=== PATIENT | female | born 1945 | race Caucasian/White ===

== ENCOUNTER 2023-09-27 10:29 | Outpatient (CLI) | payer MEDICARE | END 2023-09-27 10:30 | disposition home or self-care (01) | LOC: BICMAMMO 10:29 | PROVIDERS: ATTEND Family Medicine | DX: Z13.820 Encounter for screening for osteoporosis (principal); Z78.0 Asymptomatic menopausal state; M81.0 Age-related osteoporosis without current pathological fracture; M85.89 Other specified disorders of bone density and structure, multiple sites | CPT/HCPCS: 77080 ==

== ENCOUNTER 2023-09-28 09:15 | Emergency (ER) | payer MEDICARE ==
[2023-09-28] MEDS ORDERED: Nitroglycerin 0.4 MG TAB (25 Tab Bottle) ONE (09:44)
[2023-09-28] MEDS ORDERED: Aspirin Chewable 81 MG TAB ONE (09:44)
[2023-09-28] MEDS ORDERED: fentaNYL 50 mcg/mL 1 mL Vial ONE (10:07)
[2023-09-28 10:12] LABS: Hematocrit 45.6 % (36.0-47.0); Hemoglobin 15.4 g/dL (12.0-16.0); Manual Diff?? YES; Mean Corpuscular HGB CONC 33.8 g/dL (32.0-36.0); Mean Corpuscular Hemoglobin 31.4 pg (27.0-31.0); Mean Corpuscular Volume 93.1 fl (78.0-98.0); Mean Platelet Volume 10.1 fL (7.4-10.4); Platelet Count 144 10x3/uL (130-400); RBC Distribution Width 12.3 % (11.5-14.5); White Blood Cell (WBC) Count 11.5 10x3/uL (4.8-10.8)
[2023-09-28 10:13] LABS: Delete Auto Diff?? YES
[2023-09-28 10:33] LABS: Troponin I Less than 0.010 ng/mL (< 0.028)
[2023-09-28 10:34] LABS: ALT (SGPT) 25 U/L (8-55); AST (SGOT) 28 U/L (5-34); Albumin 4.4 g/dL (3.4-4.8); Alkaline Phosphatase 41 U/L (40-110); Anion Gap 9 mmol/L (10-20); BUN (Urea Nitrogen) 14 mg/dL (9.8-20.1); Bilirubin, Total 0.7 mg/dL (0.2-1.2); Calc. Creatinine Clearance 0 mL/min (70-130); Calcium 9.7 mg/dL (7.8-10.44); Carbon Dioxide 28 mmol/L (23-31); Chloride 107 mmol/L (98-107); Estimated GFR 69; Globulin 2.4 g/dL (2.4-3.5); Glucose 117 mg/dL (83-110); Lipase 41 U/L (8-78); Protein, Total 6.8 g/dL (5.8-8.1); Sodium 140 mmol/L (136-145)
[2023-09-28 11:14] LABS: Band 1 % (5-11); CellaVision Operator ID LAB.KW3; Eosinophils 2 % (0-10); Lymphocytes 47 % (21-51); Monocytes 7 % (0-10); Neutrophil 40 % (42-75); Platelet Adequacy Comment Platelets Normal; RBC Morphology Within Normal Limits; Reactive Lymphocytes 2 % (0-10); Total Cell Count 102
[2023-09-28] MEDS ORDERED: Lidocaine 4% Patch TD SCH (11:45)
[2023-09-28 14:42] LABS: Troponin I Less than 0.010 ng/mL (< 0.028)
[2023-09-28] MEDS ORDERED: Transdermal Patch Removal TOP SCH (23:59)
== END 2023-09-28 15:28 | disposition home or self-care (01) ==
LOC: ERS 09:15
DX: R07.89 Other chest pain (principal); I10 Essential (primary) hypertension; H40.89 Other specified glaucoma; C85.90 Non-Hodgkin lymphoma, unspecified, unspecified site; Z95.5 Presence of coronary angioplasty implant and graft
CPT/HCPCS: 71045; 80053; 83690; 83880; 84484 ×2; 85025; 85379; 93005; 96374; 99285; J3010; 36415